=== PATIENT | male | born 1970 | race Asian ===

== ENCOUNTER 2018-08-04 14:38 | Emergency (ER) | payer OTHER ==
[2018-08-04 16:37] LABS: Influenza A Molecular POSITIVE (Negative)
--- NOTE | 2018-08-04 16:48 | UC ---
Respiratory Complaint HPI - History of Current Complaint Chief Complaint: UCGeneralIllness Stated Complaint: FEVER Time Seen by Provider: 08/04/18 16:05 Hx Obtained From: Patient Onset/Duration: Gradual Onset Timing: Constant Severity Initially: Moderate Severity Currently: Moderate Pain Intensity: 4 Character: Cough: Nonproductive Associated Signs And Symptoms: Positive: Negative - Diffuse myalgias and arthralgias - Allergies/Home Medications Allergies/Adverse Reactions: Allergies Allergy/AdvReac Type Severity Reaction Status Date / Time No Known Allergies Allergy Verified 08/04/18 16:11 Home Medications: Home Medications NK [No Home Medications Reported] 08/04/18 [History Confirmed 08/04/18] PMH/Surg Hx/FS Hx/Imm Hx Previously Healthy: Yes - Surgical History Surgical History: None - Social History Alcohol Use: None Substance Use Type: None Smoking Status (MU): Never Smoked Tobacco Review of Systems All Other Systems Reviewed And Are Negative: Yes Constitutional: Positive: Negative Skin: Positive: Negative Eyes: Positive: Negative ENT: Positive: Sore Throat - A little Respiratory: Positive: Cough Cardiovascular: Positive: Negative Gastrointestinal: Positive: Negative Genitourinary: Positive: Negative Physical Exam - Summary Physical Exam Summary: Nontoxic in appearance with stable vital signs aside from a fever. Triage Information Reviewed: Yes Appearance: Well-Appearing Vital Signs: Initial Vital Signs Temp 101.1 F 08/04/18 16:07 Pulse 116 08/04/18 16:07 Resp 18 08/04/18 16:07 BP 159/88 08/04/18 16:07 Pulse Ox 97 08/04/18 16:07 Vital Signs Reviewed: Yes ENT Exam: Normal Neck exam: Normal Respiratory Exam: Normal Cardiovascular Exam: Normal Abdominal Exam: Normal Respiratory Course/Dx - Course Course Of Treatment: Mr. Reyes was found to have a positive Influenza A swab and I will treat him with Tamiflu. - Differential Dx/Diagnosis Provider Diagnosis: Influenza A Discharge - Sign-Out/Discharge Documenting (check all that apply): Patient Departure All imaging exams completed and their final reports reviewed: No Studies - Discharge Plan Condition: Stable Disposition: HOME Patient Education Materials: Influenza (ED) Referrals: No Primary Care Phys,NOPCP [Primary Care Provider] - Care [facility] [Outside] - Billing Disposition and Condition Condition: STABLE Disposition: Home
== END 2018-08-04 16:57 | disposition home or self-care (01) ==
LOC: UCEAST 14:38
DX: J10.1 Influenza due to other identified influenza virus with other respiratory manifestations (principal)
CPT/HCPCS: 99202; G0463

== ENCOUNTER 2018-12-01 12:41 | Emergency (ER) | payer OTHER ==
[2018-12-01 13:37] VITALS: BP 125/86
[2018-12-01] MEDS ORDERED: predniSONE TAB* 20 MG PO ONE (13:58)
[2018-12-01] MEDS ORDERED: Famotidine TAB* 20 MG PO ONE (13:58)
[2018-12-01] MEDS ORDERED: Ibuprofen TAB* 600 MG PO ONE (13:58)
[2018-12-01] MEDS ORDERED: diPHENhydraMINE PO* 50 MG PO ONE (13:59)
--- NOTE | 2018-12-01 14:07 | UC ---
Bite Injury/Animal HPI - HPI Summary HPI Summary: 48-year-old male comes in with a chief complaint of an insect bite to the right fourth finger. Patient was gardening with gloves on felt sudden pain on the dorsum of the right fourth finger noticed a wasp like insect on his glove which she brushed off get immediate pain in that area the pain radiates proximally along the finger and into the right elbow. Denies any chest pain shortness of breath or difficulty with swallowing. No prior allergic reactions to bees or wasps. Pain is worse with movement of the finger and palpation. - History of Current Complaint Chief Complaint: [place] Stated Complaint: BEE STING Time Seen by Provider: 12/01/18 13:52 Pain Intensity: 9 - Allergies/Home Medications Allergies/Adverse Reactions: Allergies Allergy/AdvReac Type Severity Reaction Status Date / Time No Known Allergies Allergy Verified 12/01/18 13:29 Home Medications: Home Medications Atorvastatin* [Lipitor*] 10 mg PO DAILY 12/01/18 [History Confirmed 12/01/18] PMH/Surg Hx/FS Hx/Imm Hx Previously Healthy: Yes Endocrine History: Dyslipidemia - Surgical History Surgical History: None - Family History Known Family History: Positive: Non-Contributory - Social History Alcohol Use: None Substance Use Type: None Smoking Status (MU): Never Smoked Tobacco Review of Systems All Other Systems Reviewed And Are Negative: Yes Constitutional: Positive: Negative Skin: Positive: Other - see hpi Eyes: Positive: Negative ENT: Positive: Negative Respiratory: Positive: Negative Cardiovascular: Positive: Negative Gastrointestinal: Positive: Negative Motor: Positive: Other - see hpi Neurovascular: Positive: Negative Musculoskeletal: Positive: Other: - see hpi Neurological: Positive: Negative Psychological: Positive: Negative Is Patient Immunocompromised?: No Physical Exam Triage Information Reviewed: Yes Appearance: Well-Appearing, No Pain Distress, Well-Nourished Vital Signs: Initial Vital Signs Temp 97.9 F 12/01/18 13:30 Pulse 78 12/01/18 13:30 Resp 16 12/01/18 13:30 BP 125/86 12/01/18 13:30 Pulse Ox 99 12/01/18 13:30 Vital Signs Reviewed: Yes Eye Exam: Normal Eyes: Positive: Conjunctiva Clear ENT: Negative: Muffled voice, Hoarse voice Neck: Positive: Supple Respiratory: Positive: Lungs clear, Normal breath sounds, No respiratory distress Cardiovascular: Positive: RRR Neurological: Positive: Alert Psychological: Positive: Age Appropriate Behavior Skin: Positive: Other - There is an ecchymotic spot on the dorsum of the right fourth finger between the DIP and PIP. Is tender to palpation there is some localized swelling. Patient declines flexion and extension secondary to pain I am able to passively flex and extend the finger. Normal capillary refill normal sensation. Wrist and elbow have full range of motion there is no redness or streaking up the arm. Bite Injury Course/Dx - Course Course Of Treatment: In clinic patient received ibuprofen 600 mg by mouth, Benadryl 50 mg by mouth, Pepcid 40 mg by mouth, and prednisone 60 mg by mouth. He also had ice on the wasp sting. No worsening while in clinic no difficulty breathing no difficulty swallowing. Patient and family would like to go. Going to continue the same treatment as needed get reevaluated if worse or any questions concerns. - Differential Dx/Diagnosis Provider Diagnosis: Wasp sting Discharge - Sign-Out/Discharge Documenting (check all that apply): Patient Departure All imaging exams completed and their final reports reviewed: No Studies - Discharge Plan Condition: Stable Disposition: HOME Prescriptions: Famotidine TAB* [Pepcid 20 MG TAB*] 20 mg PO BID PRN #8 tab PRN Reason: Allergy Symptoms predniSONE TAB* [Deltasone 20 MG TAB*] 40 mg PO DAILY PRN #8 tab PRN Reason: Allergy Symptoms Patient Education Materials: Insect Bite or Sting (ED) Referrals: Ramona Lagunas MD [Primary Care Provider] - Additional Instructions: FOLLOW UP WITH YOUR DOCTOR IF NOT COMPLETELY IMPROVED. GET RECHECKED SOONER IF YOUR CONDITION WORSENS; DIFFICULTY BREATHING OR SWALLOWING OR ANY QUESTIONS OR CONCERNS. TAKE IBUPROFEN 600MG EVERY 6 HOURS NEEDED FOR THE PAIN. TAKE BENADRYL 50MG EVERY 6 HOURS NEEDED. TAKE PEPCID 20MG TWICE A DAY NEEDED. TAKE THE PREDNISONE DIRECTED NEEDED. - Billing Disposition and Condition Condition: STABLE Disposition: Home
== END 2018-12-01 14:46 | disposition home or self-care (01) ==
LOC: UCEAST 12:41
DX: T63.461A Toxic effect of venom of wasps, accidental (unintentional), initial encounter (principal); Y92.017 Garden or yard in single-family (private) house as the place of occurrence of the external cause; E78.5 Hyperlipidemia, unspecified
CPT/HCPCS: 99213; A9270-GY; G0463; J7512